=== PATIENT | female | born 1990 | race Caucasian/White ===

== ENCOUNTER 2018-08-17 21:53 | Inpatient (IN) | payer BC ==
[2018-08-17] MEDS ORDERED: NA CHLORIDE 0.9% 1,000 ML ONE (22:14)
[2018-08-17 22:40] LABS: Urine Blood 2+ (NEG); Urine Glucose NEGATIVE (NEG); Urine Protein NEGATIVE (NEG)
[2018-08-17 22:48] LABS: Absolute Lymphocytes (CBC) 2.6 K/uL (0.7-4.9); Absolute Monocytes 0.9 K/uL (0.1-1.3); Absolute Neutrophil 6.7 K/uL (1.8-8.0); Basophils % 0.4 % (0-1.3); Eosinophils % 0.4 % (0-4.4); Hematocrit 40.4 % (36.0-45.0); Lymphocytes % 25.6 % (15.3-44.8); MCH 28.5 pg (27.0-35.0); MCV 84.7 fL (80-100); MPV 9.5 fL (7.6-11.3); Monocytes % 8.7 % (3.3-12.3); RBC Red Blood Cell Count 4.77 M/uL (3.86-4.86)
[2018-08-17 23:05] LABS: BUN Blood Urea Nitrogen 21 mg/dL (7-18); Bicarbonate 28 mmol/L (21-32); Glucose Level 94 mg/dL (74-106); HCG, Quantitative 205 mIU/mL (1-3); Sodium Level 138 mmol/L (136-145)
--- NOTE | 2018-08-17 23:36 | EDPHYS ---
Physician Documentation [facility] Name: Sheila Trinidad Age: 28 yrs Sex: Female : 1990 Arrival Date: 08/17/2018 Time: 21:56 Bed 25 Private MD: Delta Tabor ED Physician Xu Sharif HPI: 08/17 22:30 This 28 yrs old Female presents to ER via Ambulatory with complaints of minna Vaginal Bleeding, Pelvic Pain. 22:30 The patient presents with vaginal bleeding that is. Onset: The symptoms/episode minna began/occurred 5 day(s) ago. Modifying factors: The symptoms are alleviated by nothing, the symptoms are aggravated by movement. Associated signs and symptoms: The patient has no apparent associated signs or symptoms. Severity of symptoms: At their worst the symptoms were mild, moderate, in the emergency department the symptoms are unchanged. The patient is sexually active, reportedly has a single partner. The patient has not experienced similar symptoms in the past. 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 - Social history:: Smoking status: Patient/guardian denies using tobacco, Patient uses alcohol, occasionally. Patient/guardian denies using street drugs. - Ebola Screening: : No symptoms or risks identified at this time. - Family history:: not pertinent. ROS: 22:30 Constitutional: Negative for fever, chills, and weight loss, Eyes: Negative for injury, minna pain, redness, and discharge, ENT: Negative for injury, pain, and discharge, Neck: Negative for injury, pain, and swelling, Cardiovascular: Negative for chest pain, palpitations, and edema, Respiratory: Negative for shortness of breath, cough, wheezing, and pleuritic chest pain, Abdomen/GI: Negative for abdominal pain, nausea, vomiting, diarrhea, and constipation, Back: Negative for injury and pain, MS/Extremity: Negative for injury and deformity, Skin: Negative for injury, rash, and discoloration, Neuro: Negative for headache, weakness, numbness, tingling, and seizure, Psych: Negative for depression, anxiety, suicide ideation, homicidal ideation, and hallucinations, Allergy/Immunology: Negative for hives, rash, and allergies, Endocrine: Negative for neck swelling, polydipsia, polyuria, polyphagia, and marked weight changes, Hematologic/Lymphatic: Negative for swollen nodes, abnormal bleeding, and unusual bruising. 22:30 : Positive for pelvic pain, vaginal bleeding, of the suprapubic area and right inguinal area. Exam: 22:30 Constitutional: This is a well developed, well nourished patient who is awake, alert, minna and in no acute distress. Head/Face: Normocephalic, atraumatic. Eyes: Pupils equal round and reactive to light, extra-ocular motions intact. Lids and lashes normal. Conjunctiva and sclera are non-icteric and not injected. Cornea within normal limits. Periorbital areas with no swelling, redness, or edema. ENT: Nares patent. No nasal discharge, no septal abnormalities noted. Tympanic membranes are normal and external auditory canals are clear. Oropharynx with no redness, swelling, or masses, exudates, or evidence of obstruction, uvula midline. Mucous membranes moist. Neck: Trachea midline, no thyromegaly or masses palpated, and no cervical lymphadenopathy. Supple, full range of motion without nuchal rigidity, or vertebral point tenderness. No Meningismus. Chest/axilla: Normal chest wall appearance and motion. Nontender with no deformity. No lesions are appreciated. Cardiovascular: Regular rate and rhythm with a normal S1 and S2. No gallops, murmurs, or rubs. Normal PMI, no JVD. No pulse deficits. Respiratory: Lungs have equal breath sounds bilaterally, clear to auscultation and percussion. No rales, rhonchi or wheezes noted. No increased work of breathing, no retractions or nasal flaring. Back: No spinal tenderness. No costovertebral tenderness. Full range of motion. Female : Normal external genitalia. Skin: Warm, dry with normal turgor. Normal color with no rashes, no lesions, and no evidence of cellulitis. MS/ Extremity: Pulses equal, no cyanosis. Neurovascular intact. Full, normal range of motion. Neuro: Awake and alert, GCS 15, oriented to person, place, time, and situation. Cranial nerves II-XII grossly intact. Motor strength 5/5 in all extremities. Sensory grossly intact. Cerebellar exam normal. Normal gait. Psych: Awake, alert, with orientation to person, place and time. Behavior, mood, and affect are within normal limits. 22:30 Abdomen/GI: Inspection: distension, Bowel sounds: normal, Palpation: moderate abdominal tenderness, in the suprapubic area and right lower quadrant, Liver: is firm, Hernia: not appreciated. Vital Signs: 22:12 BP 139 / 97; Pulse 84; Resp 18 S; Temp 97.7(O); Pulse Ox 100% on R/A; Weight 97.07 kg bb (R); Height 5 ft. 3 in. (160.02 cm) (R); Pain 10/10; 22:40 BP 116 / 85; Pulse 69; Resp 18; Pulse Ox 100% ; tl3 23:38 BP 121 / 85; Pulse 68; Resp 18; Pulse Ox 100% on R/A; tl3 08/18 00:27 BP 109 / 62; Pulse 69; Resp 18; Temp 97.8(O); Pulse Ox 100% on R/A; mg2 08/17 22:12 Body Mass Index 37.91 (97.07 kg, 160.02 cm) MDM: 08/17 22:00 Patient medically screened. [facility] 22:30 Data reviewed: vital signs, nurses notes, lab test result(s), radiologic studies, [facility] ultrasound. 08/17 22:02 Order name: Quantitative Hcg; Complete Time: 23:27 [facility] 08/17 22:02 Order name: Abo/rh Typing; Complete Time: 23:27 [facility] 08/17 22:02 Order name: Basic Metabolic Panel; Complete Time: 23:27 [facility] 08/17 22:02 Order name: CBC with Diff; Complete Time: 23:27 [facility] 08/17 22:13 Order name: Urine Dipstick--Ancillary (enter results); Complete Time: 23:27 ca 08/17 22:13 Order name: Urine --Ancillary (enter results); Complete Time: 23:27 ca 08/17 22:02 Order name: US Transvaginal Ob [facility] 08/17 23:00 Order name: ABO/RH no charge; Complete Time: 23:27 EDMS 08/17 23:39 Order name: NPO [facility] 08/17 23:39 Order name: Basic Metabolic Panel [facility] 08/17 23:39 Order name: Basic Metabolic Panel [facility] 08/17 23:39 Order name: CBC with Automated Diff [facility] 08/17 23:39 Order name: CBC with Automated Diff [facility] 08/17 22:02 Order name: Urine Test (obtain specimen); Complete Time: 22:11 [facility] 08/17 22:02 Order name: IV Saline Lock; Complete Time: 22:42 [facility] 08/17 22:02 Order name: Labs collected and sent; Complete Time: 22:43 [facility] 08/17 22:02 Order name: NPO; Complete Time: 22:43 [facility] 08/17 22:02 Order name: Urine Dipstick-Ancillary (obtain specimen); Complete Time: 22:11 [facility] Administered Medications: 22:41 Drug: NS 0.9% 1000 ml Route: IV; Rate: 1 bolus; Site: left antecubital; Delivery: tl3 Primary tubing; 23:59 Follow up: IV Status: Completed infusion; IV Intake: 1000ml tl3 Disposition: 08/17/18 23:35 Hospitalization ordered by Nasrin Luis for Inpatient Admission. Preliminary diagnosis are Ectopic , Pelvic and perineal pain. - [facility]. - Status is Inpatient Admission. mg2 - Condition is Fair. - Problem is new. - Symptoms have improved. UTI on Admission? No Signatures: Dispatcher [employer] EDDeedee Carey RN Xu Lester MD MD cha Ballard, Brenda, RN RN bb Alecia Holly RN RN tl3 Cm Boswell RN RN mg2 Corrections: (The following items were deleted from the chart) 08/18 00:08/17 23:35 Hospitalization Ordered by Nasrin Luis MD for Inpatient Admission. yana Preliminary diagnosis is Ectopic ; Pelvic and perineal pain. Bed requested for [facility]. Status is Inpatient Admission. Condition is Fair. Problem is new. Symptoms have improved. UTI on Admission? No. minna 08/18 00:57 00:18 08/17/2018 23:35 Hospitalization Ordered by Nasrin Luis MD for Inpatient mg2 Admission. Preliminary diagnosis is Ectopic ; Pelvic and perineal pain. Bed requested for [facility]. Status is Inpatient Admission. Condition is Fair. Problem is new. Symptoms have improved. UTI on Admission? No. yana
--- NOTE | 2018-08-17 23:36 | ER ---
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 Pain is steady then gets sharp. Transition of care: patient was not received from another setting of care. Onset of symptoms was August 17, 2018. Risk Assessment: Do you want to hurt yourself or someone else? Patient reports no desire to harm self or others. Initial Sepsis Screen: Does the patient meet any 2 criteria? Yes Does the patient have a suspected source of infection? No. Patient's initial sepsis screen is negative. Care prior to arrival: None. 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 - Social history:: Smoking status: Patient/guardian denies using tobacco, Patient uses alcohol, occasionally. Patient/guardian denies using street drugs. - Ebola Screening: : No symptoms or risks identified at this time. - Family history:: not pertinent. Screenin:27 Abuse screen: Denies threats or abuse. Nutritional screening: No deficits noted. tl3 Tuberculosis screening: No symptoms or risk factors identified. Fall Risk None identified. Assessment: 22:27 General: Appears distressed, uncomfortable, well groomed, well developed, well tl3 nourished, Behavior is calm, cooperative, appropriate for age, anxious. Pain: Complains of pain in abdomen Pain currently is 10 out of 10 on a pain scale. Neuro: Level of Consciousness is awake, alert, obeys commands, Oriented to person, place, time, situation, Appropriate for age. Cardiovascular: Patient's skin is warm and dry. Respiratory: Airway is patent Respiratory effort is even, unlabored, Respiratory pattern is regular, symmetrical. GI: No deficits noted. : Urine is blood tinged, Reports vaginal bleeding that is pt saw OB because of bleeding and had an ultrasound that showed she was having a miscarriage, gave her pain medicine and 4 pills that would help her expel what remains were left. C/o increasing pain and vaginal bleeding. 23:20 Reassessment: Patient appears in no apparent distress at this time. No changes from tl3 previously documented assessment. Patient and/or family updated on plan of care and expected duration. Pain level reassessed. Patient is alert, oriented x 3, equal unlabored respirations, skin warm/dry/pink. pt ambulating to RR without difficulty. Vital Signs: 22:12 BP 139 / 97; Pulse 84; Resp 18 S; Temp 97.7(O); Pulse Ox 100% on R/A; Weight 97.07 kg bb (R); Height 5 ft. 3 in. (160.02 cm) (R); Pain 10/10; 22:40 BP 116 / 85; Pulse 69; Resp 18; Pulse Ox 100% ; tl3 23:38 BP 121 / 85; Pulse 68; Resp 18; Pulse Ox 100% on R/A; tl3 08/18 00:27 BP 109 / 62; Pulse 69; Resp 18; Temp 97.8(O); Pulse Ox 100% on R/A; mg2 08/17 22:12 Body Mass Index 37.91 (97.07 kg, 160.02 cm) ED Course: 08/17 21:56 Patient arrived in ED. am2 21:56 Delta Tabor MD is Private Physician. am2 22:00 Xu Sharif MD is Attending Physician. [facility] 22:01 Alecia Holly, EMMY is Primary Nurse. tl3 22:11 Triage completed. bb 22:12 Arm band placed on Patient placed in an exam room, on a stretcher, on pulse oximetry. bb Family accompanied patient. 22:27 Patient has correct armband on for positive identification. Placed in gown. Bed in low tl3 position. Call light in reach. Side rails up X 1. Adult w/ patient. Pulse ox on. NIBP on. Warm blanket given. 22:27 No provider procedures requiring assistance completed. tl3 22:32 ED physician to see patient. Dr Sharif discussing POC with patient. tl3 22:32 Ultrasound done. tl3 22:40 Inserted saline lock: 20 gauge in left antecubital area, using aseptic technique. tl3 ,using aseptic technique. per Cm BOOTH. 22:42 US Transvaginal Ob Sent. tl3 22:53 US Transvaginal Ob In Process Unspecified. [facility] 23:34 Nasrin Luis MD is Hospitalizing Provider. [facility] 23:43 ED physician to see patient. Dr Sharif discussing admission plans with pt and family. tl3 23:47 Admitting physician to see patient. Dr Luis at bedside discussing POC with pt. 3 08/18 00:36 Patient admitted, IV remains in place. mg2 Administered Medications: 08/17 22:41 Drug: NS 0.9% 1000 ml Route: IV; Rate: 1 bolus; Site: left antecubital; Delivery: tl3 Primary tubing; 23:59 Follow up: IV Status: Completed infusion; IV Intake: 1000ml tl3 Intake: 23:59 IV: 1000ml; Total: 1000ml. tl3 Outcome: 23:35 Decision to Hospitalize by Provider. [facility] 08/18 00:36 Admitted to L \\T\\ D, accompanied by nurse, via wheelchair, room 270, with chart, Report mg2 called to RN Ashley Condition: stable Instructed on the need for admit, Demonstrated understanding of instructions. 00:57 Patient left the ED. mg2 Signatures: Dispatcher [employer] EDSD Xu Sharif MD MD cha Ballard, Brenda, RN RN Mitra Han Tammy, RN RN tl3 Cm Boswell, RN RN mg2
[2018-08-17] MEDS ORDERED: ACETAMINOPHEN 500 MG TAB PO PRN (23:37)
[2018-08-17] MEDS ORDERED: ONDANSETRON 4 MG/2 ML VIAL IV PRN (23:37)
[2018-08-17] MEDS ORDERED: FENTANYL CITR 100 MCG/2 ML IV PRN (23:38)
[2018-08-17] MEDS ORDERED: NA CHLORIDE 0.9% 1,000 ML IV SCH (23:45)
[2018-08-18] MEDS ORDERED: MORPHINE 4 MG/ML SYR IV PRN (00:53)
[2018-08-18] MEDS: KETOROLAC 30 MG/ML INJ IV PRN ×2 (01:20→09:19)
[2018-08-18 04:26] LABS: Absolute Lymphocytes (CBC) 2.5 K/uL (0.7-4.9); Absolute Monocytes 0.9 K/uL (0.1-1.3); Absolute Neutrophil 6.3 K/uL (1.8-8.0); Basophils % 0.3 % (0-1.3); Eosinophils % 0.5 % (0-4.4); Hematocrit 34.8 % (36.0-45.0); Lymphocytes % 25.2 % (15.3-44.8); MCH 28.5 pg (27.0-35.0); MCV 85.1 fL (80-100); MPV 9.2 fL (7.6-11.3); Monocytes % 9.3 % (3.3-12.3); RBC Red Blood Cell Count 4.08 M/uL (3.86-4.86)
[2018-08-18 05:03] LABS: BUN Blood Urea Nitrogen 18 mg/dL (7-18); Bicarbonate 29 mmol/L (21-32); Glucose Level 95 mg/dL (74-106); HCG, Quantitative 182 mIU/mL (1-3); Potassium 3.7 mmol/L (3.5-5.1); Sodium Level 142 mmol/L (136-145)
--- NOTE | 2018-08-18 08:05 | RAD REPORT ---
EXAM DESCRIPTION: US - Transvaginal OB - 08/17/2018 10:53 pm CLINICAL HISTORY: ABD CRAMPING, COMPARISON: No comparisons FINDINGS: The uterus measures 7.7 x 4.5 x 4.5 cm. Endometrium is thin measuring 3 mm. No gestational sac or other evidence of IUP identified. Complex right adnexal mass is present measuring 6.4 x 5.3 x 4.5 cm. Normal Doppler blood flow is seen to the right ovary. The left ovary is not well seen. No left adnexal mass. Mild free fluid is seen in the cul-de-sac. IMPRESSION: No evidence of IUP is seen. Mild free fluid is seen in the pelvis with a right adnexal mass measuring 6.4 x 5.3 cm. In the settin g of an elevated HCG level, this would be quite suspicious for ectopic .
[2018-08-18] MEDS ORDERED: METHOTREXATE 25 MG/ML VIAL IM ONE (10:00)
[2018-08-18 12:01] LABS: Urine Appearance CLEAR; Urine Bilirubin NEGATIVE (NEG); Urine Blood 3+ (NEG); Urine Color YELLOW; Urine Glucose NEGATIVE (NEG); Urine Protein NEGATIVE (NEG); Urine Specific Gravity 1.015 (1.005-1.030); Urine Urobilinogen 0.2 mg/dL (0.2-1.0); Urine pH 7.5 (5.0-7.0)
[2018-08-18 12:35] LABS: Urine Bacteria <20 /HPF (<20)
[2018-08-18 12:36] LABS: Urine Culture Reflex Order NOT NEEDED
--- NOTE | 2018-08-19 03:47 | HP ---
Date of Admission: 08/17/2018 History Of Present Illness: Sheila is a 28-year-old, 2, para 0-0-1-0, who presented to the [facility] Department with acute abdominal pain that began 5 days ago. 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 Wyman whom she follows up with regularly and saw her last week. Last week, the patient was se en by Dr. Wyman and was noted to have potentially a miscarriage. The patient was given tablets to jr page to treat her miscarriage. The patient states she completed them on Wednesday. Her hCG levels have been around the 200s and have not decreased. The patient now is stating that she is not only having spotting and cramping she is also having some sharp abdominal pain that is located in the right lowe r quadrant. She denies any other symptoms. She was assessed by the emergency room physician and was found to have a mass on the right ovary. Ultrasound was performed, and the mass was 5 cm in size, c omplex right adnexal mass potentially representing an ectopic . The patient states that she has had this issue in the past, and she was treated with methotrexate. However, she did not follow up with her doctor. She states that she was young at that time and did not think to follow up. The patient is very concerned about this recurrent finding since she desires to conceive. Currently, the patient states that she does not have any fever or chills. No shortness of breath. No chest pain. No dizziness or syncope. Review of Systems: Otherwise is negative. Physical Examination: Vital Signs: On admission, blood pressure is 109/62, pulse is 69, respirations 18, temperature 97.8, O2 sats 100%. General: The patient is resting in bed with the lights off and her head covered with a blanket. Head and Neck: Normocephalic, atraumatic. Heart: Regular rate and rhythm. Respiratory: Symmetric nonlabored breathing. Abdomen: Soft. Tenderness to palpation in the right lower quadrant. No rigidity, no rebound, no gu arding. Extremities: Bilateral Lower Extremities, no clubbing, cyanosis, or edema. VAGINAL: Normal external female genitalia. Vagina is pink, moist. Cervix is tender to palpation. Uterus is tender to mobility, and there is tenderness in the right lower quadrant. Laboratory Data: White blood cell count is 10.3, hemoglobin 13.6, hematocrit 40.4, platelet count is 330. HCG level is 205. Assessment And Plan: Sheila is a 28-year-old, 2, para 0-0-1-0, LMP 05/2018, who presents to [facility] Emergency Department with abdominal pain and is found to now have an ectopic . Plan is to keep the patient for observation and treat her with methotrexate. If at any point the patient's sym ptoms worsen, we will proceed with surgical intervention. After the patient was given methotrexate, she will be given orders for followup. We will continue pain management. Advance diet to regular as long as the patient's symptoms are not worsening. /DARREN Voice ID: [id number]
--- NOTE | 2018-08-19 16:26 | DS ---
Date of Discharge: 08/18/2018 Sheila is a 28-year-old, 2, para 0-0-1-2, with current ectopic , treated with methotre xate. The patient is doing well. She has responded well to the treatment. She is tolerating regula r diet. She is ambulating and voiding without difficulty. She has been observed for increasing pain and she has not had any. She received methotrexate earlier this morning and has responded well. He r hematocrit has been stable. At 3:58 a.m., it was 34.8 and at 10:21 a.m., it was 34.1. Her vital s igns are now blood pressure 98/60, pulse of 76, respirations 18, temperature 98.2, and she has no meryl n. She is ambulating well. Talking to her boyfriend without issues and is ready to go home. The clif lua has been given strict instructions for followup. She is aware that if her pain worsens or she has sharpening discomfort, she is to return to the emergency room immediately. She has also been giv en instructions for followup HCG levels. She is instructed to have one performed on Wednesday and the n ext one on Wednesday. She will be informed if there are any issues with these results and she has al so been instructed to follow up with her OB next week. The patient verbalizes understanding. YEN Voice ID: [id number] Report ID: [id number]
== END 2018-08-18 16:05 | disposition home or self-care (01) | DRG 777 ==
LOC: ER 21:53 → ERHOLD 23:42 → 2ND-WC 08-18 00:42
PROVIDERS: ADMIT Student in an Organized Health Care Education/Training Program; ATTEND Student in an Organized Health Care Education/Training Program
DX: O00.90 Unspecified ectopic pregnancy without intrauterine pregnancy (principal)
CPT/HCPCS: 36415; 76817; 80048; 81001; 81003; 81025; 84702; 85014; 85025; 86900; 86901; 96360; 99285; J7030

== ENCOUNTER 2019-10-30 12:55 | Emergency (ER) | payer BC ==
--- OUTSIDE RECORDS SUMMARY | 2019-10-30 12:58 | XMS REPORT | Summary of Care ---
:1990 Author Organization [facility] - [facility] Address [address] [place] [address] Care Team Providers Name Role Phone Delta Tabor Primary Care Provider Reason for Referral Radiology Services (KIKO) Status Reason Specialty Diagnoses / Referred By Referred To Procedures Contact Contact New Request Diagnostic Diagnoses Vaginal bleeding during Karson Wan Radiology Procedures US FIRST TRIMESTER LESS THAN 14 WEEKS WITH TRANSVAGINAL US TRANSVAGINAL III, PA [address] [place] [address] [place] [address] Reason for Visit Reason Comments Vaginal Bleeding 6 weeks Auth/Cert Status Reason Specialty Diagnoses / Referred By Referred To Procedures Contact Contact Emergency [facility] [address] [place] [address] [place] Harley [address] Encounter Details Date Type Department Care Team Description 06/30/2019 Emergency [facility]-Emergency Karson Wan III, Threatened miscarriage in early (Primary Dx); Department PA Vaginal bleeding during [address] [place] [address] [place] [address] [place] [address] [place], [place] [address] Allergies No Known Allergiesdocumented as of this encounter (statuses as of 06/30/2019) Medications Medication Sig Dispensed Refills Start Date End Date Status phentermine 37.5 mg Take 37.5 mg by 0 Active capsuleIndications: mouth every Obese morning. BISMUTH SUBSALICYLATE Take by mouth. 0 Active (PEPTO-BISMOL MAX ST ORAL) traMADOL (ULTRAM) 50 mg Take 1 Tab by 20 Tab 0 07/22/2015 Active tablet mouth every 6 (six) hours as needed for Pain (scale 4-6). hydrocodone-pseudoephed- Take 10 mL by 473 mL 0 11/12/2015 Active guaif (HYCOFENIX) mouth every 6 2.5-30-200 mg/5 mL Soln (six) hours as needed (cough and congestion). metroNIDAZOLE (FLAGYL) Take 1 tablet by 14 tablet 0 04/30/2016 Active 500 mg mouth 2 (two) tabletIndications: BV times daily. (bacterial vaginosis) documented as of this encounter (statuses as of 06/30/2019) Active Problems Problem Noted Date Screen for STD (sexually transmitted disease) 04/30/2016 Vaginal bleeding 04/30/2016 Contraceptive management 08/29/2015 Screening for STD (sexually transmitted disease) 08/29/2015 Morbid obesity 08/29/2015 Lump or mass in breast 08/29/2015 Overview: IMPRESSION: RIGHT BREAST: Negative, no evidence of malignancy. Age appropriate exams. As per ACR and ACS guidelines, mammmograms recommended starting at age 40. Clinical follow-up is also recommended, and further management of palpable abnormalities should be based on the results of clinical evaluation. These findings and recommendations were discussed with the patient at the conclusion of today's examination. OVERALL ASSESSMENT - CATEGORY 1 - NEGATIVE Encounter for routine gynecological examination 08/29/2015 documented as of this encounter (statuses as of 06/30/2019) Resolved Problems Problem Noted Date Resolved Date Rubella immune 11/15/2013 08/29/2015 Obese 11/15/2013 08/29/2015 documented as of this encounter (statuses as of 06/30/2019) Immunizations Name Administration Dates Next Due Rubella 08/25/2007 Tdap 02/23/2012 documented as of this encounter Social History Tobacco Use Types Packs/Day Years Used Date Never Smoker Smokeless Tobacco: Never Used Alcohol Use Drinks/Week oz/Week Comments No Sex Assigned at Date Recorded Not on file Job Start Date Occupation Industry Not on file Not on file Not on file Travel History Travel Start Travel End No recent travel history available. documented as of this encounter Last Filed Vital Signs Vital Sign Reading Time Taken Comments Blood Pressure 116/67 06/30/2019 7:00 PM CDT Pulse 77 06/30/2019 7:00 PM CDT Temperature 37.1 C (98.8 F) 06/30/2019 4:35 PM CDT Respiratory Rate 16 06/30/2019 5:37 PM CDT Oxygen Saturation 97% 06/30/2019 7:00 PM CDT Inhaled Oxygen Concentration - - Weight 105.2 kg (232 lb) 06/30/2019 4:28 PM CDT Height 160 cm (5' 3") 06/30/2019 4:35 PM CDT Body Mass Index 41.1 06/30/2019 4:28 PM CDT documented in this encounter Discharge Instructions Karson Thomas III, PA - 06/30/2019 @@@@@@@@@@@@@@@@@@@@@@@@@@@@@@@@@@@@@@@@@@@@@@@@@@@@@ [facility] RETURN TO WORK / SCHOOL EXCUSE Sheila Kay WAS SEEN IN THE ER AND DISCHARGED 06/30/2019 TODAY, 7:18 PM & May return to Work / School / Incarceration on 07/01/19 with No limitations unless indicated below. ___The following limitations apply until pt is seen by Physician and cleared to return to normal activity. ___ Light duty ___ No Sports ___ No work ___ Do not return until fever free for 24 hours. ___ No school Kalin Wan PA-C [facility] EMERGENCY DEPRTMENT [address] [place] [address] [place] [address] If you are unprepared to return to work tomorrow due to pain please give this note to your employer and make a follow up appointment with your MD for further evaluation and limitations. ### The patient may have been given Narcotic pain medications during their stay in the ED that may show up on a Drug Screen. The hospital discharge paper work will identify these medications. @@@@@@@@@@@@@@@@@@@@@@@@@@@@@@@@@@@@@@@@@@@@@@@@@@@@@ Thank you for trusting us with your care. The emergency room is the first stop in the medical management of your complaint . Our primary pupose is to identify life threatening emergancies and to rapidly address those issues. We are releasing you today after evaluation for emergency or life threatening problems related to your complaint. At this time we are comfortable that your condition is stable enough to go home, take oral medications and follow up for further care. If you can't afford a doctor OR MEDICATIONS consider Clinic [facility], [address] [place] [address]; [phone] Medications [employer] WILL SHOW YOU WHERE YOU CAN GET YOUR MEDICATIONS CHEAPEST. 1. Call your doctor and let them know you were seen for ICD-10-CM ICD-9-CM 1. Threatened miscarriage in early O20.0 640.03 2. Vaginal bleeding during O46.90 641.93 2. Schedule a follow up within 3 days of your ER visit. 3. Take your prescriptions to the pharmacy and get them filled today. 4. Take the medications as prescribed and until completed. 5. You have been referred for further care 6. You may need additional tests Your doctors will help you figure out what you need and how to get them done. 7. Please read all paperwork provided to you. Additional instructions See Attached AttachmentsThe following attachments cannot be sent through Care Everywhere.Miscarriage,Understanding: During a Miscarriage (Burkinan) Miscarriage,Understanding: Possible Causes (Burkinan)Miscarriage, Understanding: Emotions (Burkinan)Possible Miscarriage (Threatened ) ( Burkinan)documented in this encounter Plan of Treatment Health Maintenance Due Date Last Done Comments VARICELLA VACCINES (1 of 2 2001 - 13+ 2-dose series) PAP SMEAR 08/29/2018 08/29/2015, 02/13/2011, 10/22/2009, Additional history exists INFLUENZA VACCINE 07/30/2019 DTaP,Tdap,and Td Vaccines 02/22/2022 02/23/2012 (2 - Td) PNEUMOCOCCAL 0-64 YEARS Aged Out No longer eligible COMBINED SERIES based on patient's age to complete this topic documented as of this encounter Procedures Procedure Name Priority Date/Time Associated Comments Diagnosis ABORH CONFIRMATION Routine 06/30/2019 6:52 Results for this PM CDT procedure are in the results section. TYPE AND SCREEN STAT 06/30/2019 5:47 Vaginal bleeding Results for this PM CDT during procedure are in the results section. CBC WITH DIFFERENTIAL STAT 06/30/2019 5:38 Vaginal bleeding Results for this PM CDT during procedure are in the results section. URINALYSIS STAT 06/30/2019 5:38 Vaginal bleeding Results for this PM CDT during procedure are in the results section. CBC WITH DIFF Routine 06/30/2019 5:38 Vaginal bleeding Results for this PM CDT during procedure are in the results section. TOTAL BETA HCG ASSAY STAT 06/30/2019 5:38 Vaginal bleeding Results for this PM CDT during procedure are in the results section. COMP. METABOLIC PANEL STAT 06/30/2019 5:38 Vaginal bleeding Results for this (36194) PM CDT during procedure are in the results section. POCT TEST Routine 06/30/2019 5:37 Vaginal bleeding Results for this PM CDT during procedure are in the results section. US FIRST KIKO 06/30/2019 5:29 Vaginal bleeding Results for this TRIMESTER LESS THAN PM CDT during procedure are in 14 WEEKS WITH the results TRANSVAGINAL section. NOTICE OF PRIVACY Routine 06/30/2019 4:24 PRACTICES PM CDT CONSENT/REFUSAL FOR Routine 06/30/2019 4:24 DIAGNOSIS AND PM CDT TREATMENT documented in this encounter Results ABORH CONFIRMATION (06/30/2019 6:52 PM CDT) ABO & RH B Positive LAB Comment: Performed at [facility] Laboratory Services - [facility] Blood Bank [address] [place] [phone] Toll Free: [phone] CLIA No. [id number] Specimen Performing Organization Address City/State/Zipcode Phone Number BLD LAB Type and Screen - ONCE STAT (06/30/2019 5:47 PM CDT) ABO & RH B Positive LAB Comment: Performed at [facility] Laboratory Services - [facility] Blood Bank [address] [place] [phone] Toll Free: [phone] CLIA No. [id number] IAT Negative LAB Comment: Performed at [facility] Laboratory [facility] Blood Bank [address] [place] [phone] Toll Free: [phone] CLIA No. [id number] Specimen Blood - VENOUS Performing Organization Address City/State/Zipcode Phone Number BLD LAB CBC WITH DIFFERENTIAL (06/30/2019 5:38 PM CDT) WBC 7.98 4.30 - 11.10 [facility] 10*3/L HOSPITAL LAB[facility]ATORY RBC 4.80 3.93 - 5.25 [facility] 10*6/L HOSPITAL [facility] HGB 13.1 11.6 - 15.0 g/dL [facility] HCT 39.8 35.7 - 45.2 % [facility] MCV 82.9 80.6 - 95.5 fL [facility] MCH 27.3 25.9 - 32.8 pg [facility] MCHC 32.9 31.6 - 35.1 g/dL [facility] RDW-SD 42.6 39.0 - 49.9 fL [facility] RDW-CV 14.2 12.0 - 15.5 % [facility] PLT 292 166 - 358 [facility] 10*3/L [facility] MPV 11.0 9.5 - 12.9 fL [facility] NRBC/100 WBC 0.0 0.0 - 10.0 /100 [facility] WBCs [facility] NRBC x10^3 <0.01 10*3/L [facility] GRAN MAT (NEUT) % 56.4 % [facility] IMM GRAN % 0.40 % [facility] LYMPH % 32.7 % [facility] MONO % 9.6 % [facility] EOS % 0.5 % [facility] BASO % 0.4 % [facility] GRAN MAT x10^3(ANC) 4.50 1.88 - 7.09 [facility] 10*3/uL HOSPITAL LAB[facility] IMM GRAN x10^3 0.03 0.00 - 0.06 [facility] 10*3/uL HOSPITAL [facility] LYMPH x10^3 2.61 1.32 - 3.29 [facility] 10*3/uL [facility]ITAL [facility] MONO x10^3 0.77 0.33 - 0.92 [facility] 10*3/uL HOSPITAL [facility] EOS x10^3 0.04 0.03 - 0.39 [facility] 10*3/uL [facility]ITAL [facility] BASO x10^3 0.03 0.01 - 0.07 [facility] 10*3/uL [facility] Specimen Blood - ARM, RIGHT Performing Organization Address [facility] Phone Number [facility] CLIA: [id number], [address] [place] [address] TOTAL BETA HCG ASSAY (06/30/2019 5:38 PM CDT) BETA HCG 1,011.60 Non- female [facility] and male patients: HOSPITAL LABORATORY <5 mIU/mL Specimen Blood - ARM, RIGHT Narrative Performed At Gestational AgeRange [facility] (mIU/mL) 1-10Weeks [id number] 11-15 [id number] 33855 16-22 [id number] 1954 23-40 [id number] 1566 Biotin has been reported to cause a negative bias, interpret results relative to patient's use of biotin. Performing Organization Address [facility] Phone Number [facility] CLIA: [id number], [address] [place] [address] URINALYSIS (06/30/2019 5:38 PM CDT) APPEARANCE Cloudy (A) Clear [facility] COLOR Red (A) Yellow [facility] PH 6.5 4.8 - 8.0 [facility] SP GRAVITY 1.025 1.003 - 1.030 [facility] GLU U QUAL Negative Negative [facility] BLOOD Large (A) Negative [facility] KETONES Negative Negative [facility] PROTEIN 100 mg/dL (A) Negative [facility] UROBILIN 1.0 mg/dL 0-1.0 mg/dL [facility] BILIRUBIN Negative Negative [facility] NITRITE Negative Negative [facility] LEUK SURAJ Negative Negative [facility] RBC/HPF >182 (H) 0 - 3 HPF [facility] WBC/HPF 2 0 - 5 HPF [facility] BACTERIA Few (A) Negative [facility] SQ EPITH 2 HPF [facility] Specimen Urine - URINE, CLEAN CATCH Performing Organization Address City/State/Zipcode Phone Number [facility] CLIA: [id number], [address] [place] [address] COMP. METABOLIC PANEL (97206) (06/30/2019 5:38 PM CDT) NA 141 135 - 145 mmol/L [facility] K 3.8 3.5 - 5.0 mmol/L [facility] CL 105 98 - 108 mmol/L [facility] CO2 TOTAL 25 23 - 31 mmol/L [facility] AGAP 11 2 - 16 [facility] BUN 13 7 - 23 mg/dL [facility] GLUCOSE 75 70 - 110 mg/dL [facility] CREATININE 0.70 0.50 - 1.04 [facility] mg/dL [facility] TOTAL BILI 0.4 0.1 - 1.1 mg/dL [facility] CALCIUM 8.7 8.6 - 10.6 mg/dL [facility] T PROTEIN 8.0 6.3 - 8.2 g/dL [facility] ALBUMIN 4.5 3.5 - 5.0 g/dL [facility] ALK PHOS 93 34 - 122 U/L [facility] ALT(SGPT) 18 9 - 51 U/L [facility] AST(SGOT) 24 13 - 40 U/L [facility] eGFR Calculation 97.6 mL/min/1.73m2 [facility] (Non-) [facility] eGFR Calculation 118.3 mL/min/1.73m2 [facility] () [facility] Specimen Blood - ARM, RIGHT Narrative Performed At Association of Glomerular Filtration Rate (GFR) [facility] and Staging of Kidney Disease* + + +- + | GFR (mL/min/1.73 m2)| With Kidney Damage|Without Kidney Damage + + +- + |>90| Stage one| Normal + + +- + |60-89|S tage two| Decreased GFR + + +- + |30-59|S tage three| Stage three + + +- + |15-29|S tage four | Stage four + + +- + |<15 (or dialysis)|Stage five | Stage five + + +- + *Each stage assumes the associated GFR level has been in effect for at least three months.Stages 1 to 5, with or without kidney disease, indicate chronic kidney disease. Notes: Determination of stages one and two (with eGFR >59mL/min/1.73 m2) requires estimation of kidney damage for at least three months as defined by structural or functional abnormalities of the kidney, manifested by either: Pathological abnormalities or Markers of kidney damage (including abnormalities in the composition of the blood or urine or abnormalities in imaging tests). Performing Organization Address City/State/Zipcode Phone Number [facility] CLIA: [id number], [address] [place] [address] POCT TEST (06/30/2019 5:37 PM CDT) POCT PREG Positive On board controls acceptable Yes with C Line POCT PREG LOT # [id number] POCT PREG TEST DATE 11/28/2020 Specimen Urine - URINE, CLEAN CATCH US FIRST TRIMESTER LESS THAN 14 WEEKS WITH TRANSVAGINAL (06/30/2019 5 :29 PM CDT) Specimen Impressions Performed At PACS/VR/DOSE Live low-lying intrauterine with gestational age of 6 weeks. No detectable heart rate by M-mode technique; however, heart beat motion recognized in the cine imaging. Small volume of blood in the cervix. Close follow-up is recommended. Betty Bethea MD., have reviewed this study and agree with the above report. Narrative Performed At FIRST TRIMESTER LESS THAN 14 WEEKS WITH TRANSVAGINAL PACS/VR/DOSE TRANSABDOMINAL/TRANSVAGINAL PELVIC ULTRASOUND, 1ST TRIMESTER HISTORY: 29 years-old; Female; Vaginal bleeding COMPARISON: None TECHNIQUE: The transvaginal exam was explained to the patient prior to performing and a travel money advisor was present in the room. FINDINGS: A low-lying live intrauterine is noted in the lower uterine segment with a crown rump length 2.9 mm measured transvaginally and corresponding to a gestational age 6 weeks. heart rate is not detected by M-mode technique; however, the heart motion is apparent in the provided cine imaging. No evidence of subchorionic hemorrhage is seen. Small volume of anechoic free fluid is noted in the cervix with minimal internal echogenicity, most consistent with bleeding (as bleeding was identified during the examination). Both ovaries are normal in size and echogenicity. The right ovary measures 2.6 x 2.6 x 2.1 cm (7.7 mL). The left ovary measures 2.5 x 2.6 x 1.6 cm (5.8 mL). No abnormal adnexal mass is seen. Procedure Note [facility], Radiant Results Inft User - 06/30/2019 6:19 PM CDT US FIRST TRIMESTER LESS THAN 14 WEEKS WITH TRANSVAGINAL TRANSABDOMINAL/TRANSVAGINAL PELVIC ULTRASOUND, 1ST TRIMESTER HISTORY: 29 years-old; Female; Vaginal bleeding COMPARISON: None TECHNIQUE: The transvaginal exam was explained to the patient prior to performing and a travel money advisor was present in the room. FINDINGS: A low-lying live intrauterine is noted in the lower uterine segment with a crown rump length 2.9 mm measured transvaginally and corresponding to a gestational age 6 weeks. heart rate is not detected by M-mode technique; however, the heart motion is apparent in the provided cine imaging. No evidence of subchorionic hemorrhage is seen. Small volume of anechoic free fluid is noted in the cervix with minimal internal echogenicity, most consistent with bleeding (as bleeding was identified during the examination). Both ovaries are normal in size and echogenicity. The right ovary measures 2.6 x 2.6 x 2.1 cm (7.7 mL). The left ovary measures 2.5 x 2.6 x 1.6 cm (5.8 mL). No abnormal adnexal mass is seen. IMPRESSION Live low-lying intrauterine with gestational age of 6 weeks. No detectable heart rate by M-mode technique; however, heart beat motion recognized in the cine imaging. Small volume of blood in the cervix. Close follow-up is recommended. IKitty MD., have reviewed this study and agree with the above report. Performing Organization Address City/State/Zipcode Phone Number PACS/VR/DOSE documented in this encounter Visit Diagnoses Diagnosis Threatened miscarriage in early - Primary Threatened , unspecified as to episode of care Vaginal bleeding during documented in this encounter Insurance Payer Benefit Plan Subscriber ID Effective Dates Phone Address Type / Group [facility] [id number] 2017-[facility] [phone] [address] PPO/POS [facility] [id number] [place] [address] documented as of this encounter
--- OUTSIDE RECORDS SUMMARY | 2019-10-30 12:58 | XMS REPORT ---
:1990 [facility] Address [address] [place] [address] Dr. Ricketts[address] [place] [id number] Care Team Providers Name Role Phone Unavailable Unavailable Unavailable Payers Payer Name Policy Type Policy Number Effective Date Expiration Date Problems This patient has no known problems. Allergies, Adverse Reactions, Alerts Allergy Allergy Status Severity Reaction(s) Onset Inactive Treating Comments Name Type Date Date Clinician No Known DA Active U 2018-09 Allergies -30 00:00:0 0 No Known DA Active U 2018-09 Allergies - 00:00:0 0 Medications This patient has no known medications.
[2019-10-30 13:55] LABS: Urine Blood 2+ (NEG); Urine Glucose NEGATIVE (NEG); Urine Protein NEGATIVE (NEG); Urine Specific Gravity 1.025 (1.005-1.030)
[2019-10-30 14:02] LABS: Absolute Lymphocytes (CBC) 1.6 K/uL (0.7-4.9); Basophils % 0.4 % (0-1.3); Lymphocytes % 29.7 % (15.3-44.8); MPV 9.8 fL (7.6-11.3); RBC Red Blood Cell Count 4.91 M/uL (3.86-4.86)
[2019-10-30 14:17] LABS: Albumin 3.8 g/dL (3.4-5.0); Bilirubin Direct 0.1 mg/dL (0-0.2); Bilirubin Total 0.4 mg/dL (0.2-1.0); Potassium 3.7 mmol/L (3.5-5.1); Protein, Total 7.9 g/dL (6.4-8.2)
--- NOTE | 2019-10-30 15:34 | RAD REPORT ---
EXAM DESCRIPTION: US - Transvaginal Study Probe - 10/30/2019 3:24 pm CLINICAL HISTORY: RLQ pain, "feels like my tubal " Pelvic pain. COMPARISON: <Comparisons> FINDINGS: The uterus is normal in size, shape and echotexture. The uterus measures 8.5 x 5.5 x 3.8 c m. The endometrial stripe measures 4 mm, normal. The left ovary was obscured by bowel gas. The right ovary is normal in size, shape and echotexture. T he right ovary measures 3.2 x 1.6 x 1.2 cm. No adnexal masses. Normal Doppler blood flow was demonstrated to the right ovary. No significant pelvic ascites. IMPRESSION: The left ovary was obscured by bowel gas and could not be evaluated.Otherwise, negative study.
--- NOTE | 2019-10-30 16:07 | EDPHYS ---
Physician Documentation [facility] Name: Sheila Trinidad Age: 29 yrs Sex: Female : 1990 Arrival Date: 10/30/2019 Time: 12:57 Bed 27 Private MD: Delta Tabor ED Physician Garry Villaseñor HPI: 10/30 14:06 This 29 yrs old Female presents to ER via Ambulatory with complaints of kdr Abdominal Pain. 14:06 The patient presents with abdominal pain right lower quadrant. Onset: The kdr symptoms/episode began/occurred gradually, 20 day(s) ago. The symptoms do not radiate. Associated signs and symptoms: none. The symptoms are described as achy, constant, Occasionally sharp pain . Modifying factors: The symptoms are alleviated by. Severity of pain: At its worst the pain was mild moderate just prior to arrival, in the emergency department the pain is unchanged. The patient has experienced similar episodes in the past, a few times. The patient has not recently seen a physician. 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 - Social history:: Smoking status: Patient/guardian denies using tobacco. - Ebola Screening: : No symptoms or risks identified at this time. ROS: 14:06 Constitutional: Negative for fever, chills, and weight loss, Eyes: Negative for injury, kdr pain, redness, and discharge, ENT: Negative for injury, pain, and discharge, Neck: Negative for injury, pain, and swelling, Cardiovascular: Negative for chest pain, palpitations, and edema, Respiratory: Negative for shortness of breath, cough, wheezing, and pleuritic chest pain, Back: Negative for injury and pain, : Negative for injury, bleeding, discharge, and swelling, MS/Extremity: Negative for injury and deformity, Skin: Negative for injury, rash, and discoloration, Neuro: Negative for headache, weakness, numbness, tingling, and seizure activity. Psych: Negative for depression, anxiety, suicide ideation, homicidal ideation, and hallucinations, Allergy/Immunology: Negative for hives, rash, and allergies, Endocrine: Negative for neck swelling, polydipsia, polyuria, polyphagia, and marked weight changes, Hematologic/Lymphatic: Negative for swollen nodes, abnormal bleeding, and unusual bruising. 14:06 Abdomen/GI: Positive for abdominal pain, Negative for nausea and vomiting, nausea, vomiting, and diarrhea, black/tarry stool, rectal pain, rectal bleeding, bowel incontinence. Exam: 14:06 Constitutional: This is a well developed, well nourished patient who is awake, alert, kdr and in no acute distress. Head/Face: Normocephalic, atraumatic. Eyes: Pupils equal round and reactive to light, extra-ocular motions intact. Lids and lashes normal. Conjunctiva and sclera are non-icteric and not injected. Cornea within normal limits. Periorbital areas with no swelling, redness, or edema. Neck: Trachea midline, no thyromegaly or masses palpated, and no cervical lymphadenopathy. Supple, full range of motion without nuchal rigidity, or vertebral point tenderness. No Meningismus. Chest/axilla: Normal chest wall appearance and motion. Nontender with no deformity. No lesions are appreciated. Cardiovascular: Regular rate and rhythm with a normal S1 and S2. No gallops, murmurs, or rubs. Normal PMI, no JVD. No pulse deficits. Respiratory: Lungs have equal breath sounds bilaterally, clear to auscultation and percussion. No rales, rhonchi or wheezes noted. No increased work of breathing, no retractions or nasal flaring. Back: No spinal tenderness. No costovertebral tenderness. Full range of motion. Skin: Warm, dry with normal turgor. Normal color with no rashes, no lesions, and no evidence of cellulitis. MS/ Extremity: Pulses equal, no cyanosis. Neurovascular intact. Full, normal range of motion. Neuro: Awake and alert, GCS 15, oriented to person, place, time, and situation. Cranial nerves II-XII grossly intact. Motor strength 5/5 in all extremities. Sensory grossly intact. Cerebellar exam normal. Normal gait. Psych: Awake, alert, with orientation to person, place and time. Behavior, mood, and affect are within normal limits. 14:06 Abdomen/GI: Inspection: obese Bowel sounds: active, all quadrants, Palpation: soft, mild abdominal tenderness, in the right lower quadrant, rebound tenderness, is not appreciated, voluntary guarding, is not appreciated, involuntary guarding, is not appreciated. Vital Signs: 13:17 BP 129 / 91; Pulse 73; Resp 16 S; Temp 97.8(TE); Pulse Ox 98% on R/A; Weight 104.33 kg aa5 (R); Height 5 ft. 3 in. (160.02 cm) (R); Pain 6/10; 13:59 BP 144 / 95; Pulse 67; Resp 18; Pulse Ox 95% on R/A; mg2 16:24 BP 135 / 78; Pulse 70; Resp 18; Temp 98; Pulse Ox 100% on R/A; mg2 13:17 Body Mass Index 40.74 (104.33 kg, 160.02 cm) aa5 MDM: 14:06 Data reviewed: vital signs, nurses notes, lab test result(s), radiologic studies. kdr Counseling: I had a detailed discussion with the patient and/or guardian regarding: the historical points, exam findings, and any diagnostic results supporting the discharge/admit diagnosis, lab results, radiology results, the need for outpatient follow up. 16:05 Patient medically screened. kdr 12/ 13:27 Order name: Basic Metabolic Panel; Complete Time: 16:04 kdr 12/ 13:27 Order name: CBC with Diff; Complete Time: 16:04 kdr 12/ 13:27 Order name: Creatinine for Radiology; Complete Time: 16:04 kdr 12/ 13:27 Order name: Hepatic Function; Complete Time: 16:04 kdr / 13:27 Order name: Lipase; Complete Time: 16:04 kdr / 13:34 Order name: Urine Dipstick--Ancillary (enter results); Complete Time: 14:04 bd 12/ 13:27 Order name: IV Saline Lock; Complete Time: 13:45 kdr 12/ 13:27 Order name: Labs collected and sent; Complete Time: 13:45 kdr / 13:34 Order name: Urine --Ancillary (enter results); Complete Time: 14:04 bd 12/ 14:04 Order name: US Transvaginal Study (Probe); Complete Time: 16:04 kdr Administered Medications: No medications were administered Disposition: 10/30/19 16:05 Discharged to Home. Impression: Abdominal and pelvic pain. - Condition is Stable. - Discharge Instructions: Abdominal Pain, Adult, [id number]. - Prescriptions for Tramadol 50 mg Oral Tablet - take 1 tablet by ORAL route every 8 hours as needed; 12 tablet. - Medication Reconciliation Form, Thank You Letter, Prescription Opioid Use form. - Follow up: Delta Tabor MD; When: 2 - 3 days; Reason: If symptoms return, Further diagnostic work-up, Recheck today's complaints, Continuance of care, Re-evaluation by your physician. - Problem is an ongoing problem. - Symptoms have improved. Signatures: Dispatcher [employer] EDMS Garry Villaseñor MD MD kdr Mariangel Guzman RN RN aa5 Cm Boswell RN RN mg2 Corrections: (The following items were deleted from the chart) 16:25 16:05 10/30/2019 16:05 Discharged to Home. Impression: Abdominal and pelvic pain. mg2 Condition is Stable. Forms are Medication Reconciliation Form, Thank You Letter, Antibiotic Education, Prescription Opioid Use. Follow up: Delta Tabor; When: 2 - 3 days; Reason: If symptoms return, Further diagnostic work-up, Recheck today's complaints, Continuance of care, Re-evaluation by your physician. Problem is an ongoing problem. Symptoms have improved. kdr
--- NOTE | 2019-10-30 16:07 | ER ---
Nurse's Notes [facility] Name: Sheila Trinidad Age: 29 yrs Sex: Female : 1990 Arrival Date: 10/30/2019 Time: 12:57 Bed 27 Private MD: Delta Tabor Diagnosis: Abdominal and pelvic pain Presentation: 10/30 13:14 Presenting complaint: Patient states: RLQ pain that began as intermittent pain in aa5 August and has been constant since September. Pt reports nausea today, denies vomiting. Transition of care: patient was not received from another setting of care. Onset of symptoms was September 2019. Risk Assessment: Do you want to hurt yourself or someone else? Patient reports no desire to harm self or others. Initial Sepsis Screen: Does the patient meet any 2 criteria? No. Patient's initial sepsis screen is negative. Does the patient have a suspected source of infection? No. Patient's initial sepsis screen is negative. Care prior to arrival: None. 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 - Social history:: Smoking status: Patient/guardian denies using tobacco. - Ebola Screening: : No symptoms or risks identified at this time. Screenin:28 Abuse screen: Denies threats or abuse. Denies injuries from another. Nutritional mg2 screening: No deficits noted. Tuberculosis screening: No symptoms or risk factors identified. Fall Risk None identified. Assessment: 13:24 General: Appears in no apparent distress. comfortable, Behavior is calm, cooperative. mg2 Pain: Complains of pain in abdomen Pain does not radiate. Pain currently is 5 out of 10 on a pain scale. Quality of pain is described as aching, Pain began gradually, Is intermittent. Neuro: Level of Consciousness is awake, alert, obeys commands, Oriented to person, place, time, situation. Cardiovascular: Capillary refill < 3 seconds Patient's skin is warm and dry. Respiratory: Airway is patent Respiratory effort is even, unlabored, Respiratory pattern is regular, symmetrical. GI: No signs and/or symptoms were reported involving the gastrointestinal system. : Reports pain in right lower quadrant(s). EENT: No signs and/or symptoms were reported regarding the EENT system. Derm: Skin is intact, is healthy with good turgor, Skin is pink, warm \T\ dry. normal. Musculoskeletal: Circulation, motion, and sensation intact. Capillary refill < 3 seconds. 16:24 Reassessment: Patient appears in no apparent distress at this time. Patient is alert, mg2 oriented x 3, equal unlabored respirations, skin warm/dry/pink. Vital Signs: 13:17 BP 129 / 91; Pulse 73; Resp 16 S; Temp 97.8(TE); Pulse Ox 98% on R/A; Weight 104.33 kg aa5 (R); Height 5 ft. 3 in. (160.02 cm) (R); Pain 6/10; 13:59 BP 144 / 95; Pulse 67; Resp 18; Pulse Ox 95% on R/A; mg2 16:24 BP 135 / 78; Pulse 70; Resp 18; Temp 98; Pulse Ox 100% on R/A; mg2 13:17 Body Mass Index 40.74 (104.33 kg, 160.02 cm) aa5 ED Course: 12:57 Patient arrived in ED. mr 12:58 Delta Tabor MD is Private Physician. mr 13:14 Arm band placed on. aa5 13:16 Triage completed. aa5 13:23 Cm Boswell, EMMY is Primary Nurse. mg2 13:26 Garry Villaseñor MD is Attending Physician. kdr 13:28 Patient has correct armband on for positive identification. mg2 13:45 Initial lab(s) drawn, by va, sent to lab. Urine collected: clean catch specimen, clear, jp3 scarlet colored. Inserted saline lock: 20 gauge in right antecubital area, using aseptic technique. Blood collected. Patient maintains SpO2 saturation greater than 95% on room air. 15:25 US Transvaginal Study (Probe) In Process Unspecified. EDMS 16:05 Delta Tabor MD is Referral Physician. kdr 16:25 No provider procedures requiring assistance completed. IV discontinued, intact, mg2 bleeding controlled, No redness/swelling at site. Pressure dressing applied. Administered Medications: No medications were administered Outcome: 16:05 Discharge ordered by . kdr 16:25 Discharged to home ambulatory. mg2 16:25 Condition: stable 16:25 Discharge instructions given to patient, Instructed on discharge instructions, follow up and referral plans. medication usage, Demonstrated understanding of instructions, follow-up care, medications, Prescriptions given X 1. 16:25 Patient left the ED. mg2 Signatures: Dispatcher [employer] EDMS Garry Villaseñor MD MD kdr Elizabeth Gonzalez mr Mariangel Guzman, RN RN aa5 Cm Boswell RN RN mg2 Alden Farrell jp3
[2019-10-30 18:13] VITALS: BP 135/78; TEMP 98; O2SAT 100
== END 2019-10-30 16:25 | disposition home or self-care (01) ==
LOC: ER 12:55
DX: R10.2 Pelvic and perineal pain (principal)
CPT/HCPCS: 36415; 76830; 80048; 80076; 81003; 81025; 83690; 85025; 99284

== ENCOUNTER 2020-12-16 20:44 | Emergency (ER) | payer BC ==
--- OUTSIDE RECORDS SUMMARY | 2020-12-16 20:47 | XMS REPORT | Continuity of Care Document ---
:1990 Author Organization [facility] t Address [address] [place] [address] Care Team Providers Name Role Phone Boaz Rosales Attending Clinician Payers Payer Name Policy Type Policy Number Effective Date Expiration Date S ource Problems This patient has no known problems. Allergies, Adverse Reactions, Alerts Allergy Allergy Status Severity Reaction(s) Onset Inactive Treating Comm ents Source Name Type Date Date Clinician No Known DA Active U 2017-11 [facility] 12[facility] No Known DA Active U 2017-11 [facility]ie 12-24 [facility] 00 [facility] Medications This patient has no known medications. Procedures This patient has no known procedures. Encounters Start End Encounter Admission Attending Care Care Encounter Source Date/Time Date/Time Type Type Clinicians Facility Department ID 2019-06-30 2019-06-30 Emergency [facility] NJKARINA [id number] 16:30:12 19:40:00 Karson Streeter [id number] [place] [id number] [place] [id number] Results Test Description Test Time Test Comments Results Result [facility] fiona Comments - XR HYSTROSALPNGOGRAM Patient Name: FELICIANO MARTINEZ 14:57:00 Unit No: [id number] EXAMS: CPT CODE: [id number] XR HYSTROSALPNGOGRAM [id number] HSG performed December 04, 2019 . CLINICAL HISTORY: Infertility . COMPARISON: None . DISCUSSION: HSG performed in conjunction with Dr. Sullivan . Uterine contour is normal. Normal appearing fallopian tubes are seen bilaterally. No free spill is seen from either tube. There is some pooling of contrast on the right which may be due to distal hydrosalpinx or loculation. Study was limited and discontinued due to patient discomfort. Findings may be related to tubal spasm. Total patient fluoroscopy time: 104 seconds Total patient dose: 130 mGy Total DAP: 11.3 Gycm 2 IMPRESSION: No free spill from either fallopian tube. This may be due to tubal spasm. at 1457 Reported and signed by: eKndra Ríos MD CC: Thiago Sullivan MD Technologist: RT Doc Trnscrbd D/ ([id number]) [email or web address] Orig Print D/T: S: 12/04/2019 (1500) [facility] NAME: FELICIANO HUYNH Radiology Department PHYS: [id number] - Thiago Sullivan MD [address] : 1990 AGE: 29 SEX: F [place], [place] [address] LOC: F.RAD PHONE #: [phone] EXAM DATE: 12/04/2019 STATUS: REG CLI FAX #: [phone] RAD NO: Page 1 Signed Report
[2020-12-16 22:45] LABS: Absolute Lymphocytes (CBC) 1.9 K/uL (0.7-4.9); Basophils % 0.2 % (0-1.3); Hematocrit 39.5 % (36.0-45.0); Lymphocytes % 24.4 % (15.3-44.8); MPV 9.7 fL (7.6-11.3); RBC Red Blood Cell Count 4.62 M/uL (3.86-4.86)
[2020-12-16 22:55] LABS: BUN Blood Urea Nitrogen 12 mg/dL (7-18); Bicarbonate 29 mmol/L (21-32); Glucose Level 105 mg/dL (74-106); HCG, Quantitative 278 mIU/mL (1-3); Potassium 3.5 mmol/L (3.5-5.1); Sodium Level 140 mmol/L (136-145)
[2020-12-16 22:59] LABS: Urine Blood 2+ (NEG); Urine Glucose NEGATIVE (NEG); Urine Protein NEGATIVE (NEG); Urine Specific Gravity >1.030 (1.005-1.030)
--- NOTE | 2020-12-16 23:04 | EDPHYS ---
Physician Documentation [facility] Name: Sheila Trinidad Age: 30 yrs Sex: Female : 1990 Arrival Date: 12/16/2020 Time: 21:00 Bed 15 Private MD: Delta Tabor ED Physician Corbin Peterson HPI: 12/16 22:25 This 30 yrs old Female presents to ER via Ambulatory with complaints of kb Abdominal Cramping, Vaginal Bleeding, + Preg <12wks. 22:25 The patient presents to the emergency department with abdominal pain, of the right kb lower quadrant. course: care: private OB physician, fertility specialist in [place], Leakage of Fluid: none appreciated, Ultrasound: the patient had an ultrasound, Risk/complications: Previous pregnancies: in previous pregnancies patient has had. Associated signs and symptoms: Pertinent positives: abdominal pain, vaginal bleeding, Pertinent negatives: chest pain, diarrhea, dysuria, fever, frequency, nausea, ruptured membranes, seizure, shortness of breath, vaginal discharge, vomiting. The patient has experienced similar episodes in the past. The patient has been recently seen by a physician:. 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 - Social history:: Smoking status: Patient denies any tobacco usage or history of. ROS: 22:24 Constitutional: Negative for fever, chills, and weight loss, Cardiovascular: Negative kb for chest pain, palpitations, and edema, Respiratory: Negative for shortness of breath, cough, wheezing, and pleuritic chest pain, MS/Extremity: Negative for injury and deformity, Skin: Negative for injury, rash, and discoloration, Neuro: Negative for headache, weakness, numbness, tingling, and seizure. 22:24 Abdomen/GI: Positive for abdominal pain, Negative for nausea, vomiting, and diarrhea. Exam: 22:24 Constitutional: This is a well developed, well nourished patient who is awake, alert, kb and in no acute distress. Head/Face: Normocephalic, atraumatic. Chest/axilla: Normal chest wall appearance and motion. Nontender with no deformity. No lesions are appreciated. Cardiovascular: Regular rate and rhythm with a normal S1 and S2. No gallops, murmurs, or rubs. Normal PMI, no JVD. No pulse deficits. Respiratory: Lungs have equal breath sounds bilaterally, clear to auscultation and percussion. No rales, rhonchi or wheezes noted. No increased work of breathing, no retractions or nasal flaring. Skin: Warm, dry with normal turgor. Normal color with no rashes, no lesions, and no evidence of cellulitis. MS/ Extremity: Pulses equal, no cyanosis. Neurovascular intact. Full, normal range of motion. Neuro: Awake and alert, GCS 15, oriented to person, place, time, and situation. Cranial nerves II-XII grossly intact. Motor strength 5/5 in all extremities. Sensory grossly intact. Cerebellar exam normal. Normal gait. 22:24 Abdomen/GI: Inspection: abdomen appears normal, Bowel sounds: normal, in all quadrants, Palpation: soft, in all quadrants, moderate abdominal tenderness, right pelvic area. Vital Signs: 21:26 BP 126 / 84; Pulse 85; Resp 16 S; Temp 97.5(TE); Pulse Ox 100% on R/A; Weight 99.79 kg ca1 (R); Height 5 ft. 3 in. (160.02 cm) (R); Pain 10/10; 21:26 Body Mass Index 38.97 (99.79 kg, 160.02 cm) ca1 MDM: 21:33 Patient medically screened. kb 21:50 Data reviewed: vital signs, nurses notes. Data interpreted: Pulse oximetry: on room air kb is 100 %. Interpretation: normal. 22:28 ED course: Pt has appt on Wednesday with a reproductive specialist. kb 22:31 Counseling: I had a detailed discussion with the patient and/or guardian regarding: the kb historical points, exam findings, and any diagnostic results supporting the discharge/admit diagnosis, lab results, radiology results, the need for outpatient follow up, an OB/Gyne specialist, to return to the emergency department if symptoms worsen or persist or if there are any questions or concerns that arise at home. 12/16 21:30 Order name: Quantitative Hcg; Complete Time: 22:59 kb 12/16 21:30 Order name: Abo/rh Typing; Complete Time: 22:59 kb 12/16 21:30 Order name: Basic Metabolic Panel; Complete Time: 22:59 kb 12/16 21:30 Order name: CBC with Diff; Complete Time: 22:59 kb 12/16 22:02 Order name: Urine --Ancillary (enter results); Complete Time: 22:59 tt3 12/16 22:02 Order name: Urine Dipstick--Ancillary (enter results); Complete Time: 22:59 tt3 12/16 21:29 Order name: US Transvaginal Ob kb 12/16 21:30 Order name: Urine Test (obtain specimen); Complete Time: 21:58 kb 12/16 21:30 Order name: IV Saline Lock; Complete Time: 22:07 kb 12/16 21:30 Order name: Labs collected and sent; Complete Time: 22:07 kb 12/16 21:30 Order name: NPO; Complete Time: 21:51 kb 12/16 21:30 Order name: Urine Dipstick-Ancillary (obtain specimen); Complete Time: 21:58 kb Administered Medications: 23:27 Drug: [place] 10 mg-325 mg 1 tabs Route: PO; jb4 23:28 Follow up: Response: Medication administered at discharge. jb4 Disposition: 12/17 07:11 Co-signature as Attending Physician, Corbin Peterson MD. ma2 Disposition: 12/16/20 23:03 Discharged to Home. Impression: Threatened , Abdominal and pelvic pain. - Condition is Stable. - Discharge Instructions: Vaginal Bleeding During , First Trimester, Threatened Miscarriage, [id number], Pelvic Rest. - Medication Reconciliation Form, Thank You Letter, Antibiotic Education, Prescription Opioid Use form. - Follow up: Emergency Department; When: As needed; Reason: Worsening of condition. Follow up: Private Physician; When: 2 - 3 days; Reason: Recheck today's complaints, Continuance of care, Re-evaluation by your physician. Signatures: Dispatcher [employer] Sridevi Flores, CLOCK REPAIRER-C CLOCK REPAIRER-Ckb Brown Hugo, RN RN jb4 Corbin Peterson MD MD ma2 Emilia Larson RN RN ca1 Corrections: (The following items were deleted from the chart) 12/16 23:30 23:03 12/16/2020 23:03 Discharged to Home. Impression: Threatened ; Abdominal jb4 and pelvic pain. Condition is Stable. Discharge Instructions: Vaginal Bleeding During , First Trimester, Threatened Miscarriage, [id number], Pelvic Rest. Forms are Medication Reconciliation Form, Thank You Letter, Antibiotic Education, Prescription Opioid Use. Follow up: Emergency Department; When: As needed; Reason: Worsening of condition. Follow up: Private Physician; When: 2 - 3 days; Reason: Recheck today's complaints, Continuance of care, Re-evaluation by your physician. kb
--- NOTE | 2020-12-16 23:04 | ER ---
Nurse's Notes [facility] Name: Sheila Trinidad Age: 30 yrs Sex: Female : 1990 Arrival Date: 12/16/2020 Time: 21:00 Bed 15 Private MD: Delta Tabor Diagnosis: Threatened ;Abdominal and pelvic pain Presentation: 12/16 21:26 Chief complaint: Patient states: Am and am having RLQ pain since yesterday. ca1 Worse today. reports Vaginal bleeding, spotting. Hx of miscarriage on September 2020. Coronavirus screen: Client denies travel out of the [place] in the last 14 days. At this time, the client does not indicate any symptoms associated with coronavirus-19. Ebola Screen: Patient negative for fever greater than or equal to 101.5 degrees Fahrenheit, and additional compatible Ebola Virus Disease symptoms Patient denies exposure to infectious person. Patient denies travel to an Ebola-affected area in the 21 days before illness onset. No symptoms or risks identified at this time. Initial Sepsis Screen: Does the patient meet any 2 criteria? No. Patient's initial sepsis screen is negative. Does the patient have a suspected source of infection? No. Patient's initial sepsis screen is negative. Risk Assessment: Do you want to hurt yourself or someone else? Patient reports no desire to harm self or others. Onset of symptoms was December 16, 2020. 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 - Social history:: Smoking status: Patient denies any tobacco usage or history of. Screenin:30 Abuse screen: Denies threats or abuse. Nutritional screening: No deficits noted. jb4 Tuberculosis screening: No symptoms or risk factors identified. Fall Risk None identified. Assessment: 21:30 General: Appears in no apparent distress. uncomfortable, Behavior is calm, cooperative, jb4 appropriate for age. Pain: Complains of pain in abdomen Pain does not radiate. Pain currently is 10 out of 10 on a pain scale. Quality of pain is described as crampy. Neuro: Level of Consciousness is awake, alert, obeys commands, Oriented to person, place, time, situation. Cardiovascular: Patient's skin is warm and dry. Respiratory: Airway is patent Respiratory effort is even, unlabored, Respiratory pattern is regular, symmetrical. GI: Abdomen is round obese. : No signs and/or symptoms were reported regarding the genitourinary system. EENT: No signs and/or symptoms were reported regarding the EENT system. Derm: Skin is intact, Skin is pink, warm \T\ dry. Musculoskeletal: Circulation, motion, and sensation intact. Range of motion: intact in all extremities. 22:30 Reassessment: Patient appears in no apparent distress at this time. Patient and/or jb4 family updated on plan of care and expected duration. Pain level reassessed. Patient is alert, oriented x 3, equal unlabored respirations, skin warm/dry/pink. 23:29 Reassessment: Patient appears in no apparent distress at this time. Patient and/or jb4 family updated on plan of care and expected duration. Pain level reassessed. Patient is alert, oriented x 3, equal unlabored respirations, skin warm/dry/pink. Vital Signs: 21:26 BP 126 / 84; Pulse 85; Resp 16 S; Temp 97.5(TE); Pulse Ox 100% on R/A; Weight 99.79 kg ca1 (R); Height 5 ft. 3 in. (160.02 cm) (R); Pain 10/10; 21:26 Body Mass Index 38.97 (99.79 kg, 160.02 cm) ca1 ED Course: 21:00 Patient arrived in ED. am2 21:01 Delta Tabor MD is Private Physician. am2 21:28 Triage completed. ca1 21:29 Arm band placed on right wrist. ca1 21:30 Patient has correct armband on for positive identification. Bed in low position. Call jb4 light in reach. Side rails up X 1. 21:33 Sridevi Mensah [facility]-C [facility]. kb 21:33 Corbin Peterson MD is Attending Physician. kb 21:39 Brown Hugo, RN is Primary Nurse. jb4 22:05 Initial lab(s) drawn, by me, sent to lab. Inserted saline lock: 20 gauge in right jb4 antecubital area, using aseptic technique. Blood collected. 22:07 US Transvaginal Ob In Process Unspecified. EDMS 23:30 No provider procedures requiring assistance completed. IV discontinued, intact, jb4 bleeding controlled, No redness/swelling at site. Pressure dressing applied. Administered Medications: 23:27 Drug: Palmer 10 mg-325 mg 1 tabs Route: PO; jb4 23:28 Follow up: Response: Medication administered at discharge. jb4 Outcome: 23:03 Discharge ordered by . kb 23:30 Patient left the ED. jb4 23:30 Discharged to home ambulatory. jb4 23:30 Condition: stable 23:30 Discharge instructions given to patient, Instructed on discharge instructions, follow up and referral plans. Demonstrated understanding of instructions, follow-up care. Signatures: Dispatcher [employer] EDMN Sridevi Mensah FNP-C TENTERER-Ckb Brown Hugo, RN RN jb4 Mitra Mcneal 2 Emilia Larson RN RN ca1
[2020-12-16 23:34] VITALS: BP 126/84; TEMP 97.5; O2SAT 100
[2020-12-16] MEDS ORDERED: HYDROCODONE/APAP 10/325 TAB ONE (23:37)
--- NOTE | 2020-12-17 17:36 | RAD REPORT ---
EXAM DESCRIPTION: US - Transvaginal OB - 12/16/2020 10:54 pm ADDENDUM #1 The findings were called to Sridevi Mensah NP at 10: 25 PM central time. Electronically signed by: Willy Eaton MD 12/17/2020 12:53 AM BIOTECHNICIAN End of Addendum EXAM DESCRIPTION: Transvaginal OB CLINICAL HISTORY: 30 years Female ABD PAIN COMPARISON: None. TECHNIQUE: Transvaginal duplex imaging performed to evaluate the pelvis. FINDINGS: The uterus measures 8.7 x 3.7 x 4.9 cm. The endometrial stripe measures 0.26 cm. No IUP is visualized. The right ovary measures 1.8 x 2.3 x 1.5 cm. There is a isoechoic/hypoechoic structure adjacent to th e right ovary not measured on this study but estimated to measure approximately 2.5 cm. This could re present a complex cyst. The possibility of ectopic cannot be excluded. The left ovary measuring 1.6 x 2.1 x 1.7 cm and appears unremarkable. Blood flow is visualized in the ovaries. There is a small amount of free fluid. IMPRESSION: No IUP is identified. There is a structure adjacent to the right ovary which could repre sent a complex cyst. The possibility of ectopic cannot be excluded. Beta hCG correlation an d follow-up sonography in one week is recommended. Electronically signed by: Willy Eaton MD 12/16/2020 10:24 PM BIOTECHNICIAN Due to temporary technical issues with the PACS/Fluency reporting system, reports are being signed by the in house radiologists without review as a courtesy to insure prompt reporting. The interpreting radiologist is fully responsible for the content of the report.
== END 2020-12-16 23:30 | disposition home or self-care (01) ==
LOC: ER 20:44
DX: O20.0 Threatened abortion (principal)
CPT/HCPCS: 36415; 76817; 80048; 81003; 81025; 84702; 85025; 86900; 86901; 99284